=== PATIENT | female | born 1990 ===

== ENCOUNTER 2022-12-09 02:45 | Inpatient (IN) | payer OTHER ==
[~2022-12-09] VITALS: Ht 162.6 cm; Wt 87.3 kg
[2022-12-09] VITALS (7 sets, daily range): BP systolic 136–142; BP diastolic 61–83; O2SAT 99–100
[2022-12-09] MEDS ORDERED: RHOGAM 300MCG (1500IU) INJ IM SCH (03:00)
[2022-12-09] MEDS ORDERED: DOCUSATE SODIUM 100MG CAPSULE PO PRN (03:00)
[2022-12-09] MEDS ORDERED: LIDOCAINE 1% MDV 20ML VIAL INFIL PRN (03:00)
[2022-12-09] MEDS ORDERED: TRANEXAMIC ACID INJection 1,000 MG in NS 100 ML IV PRN (03:00)
[2022-12-09] MEDS ORDERED: METHYLERGONOVINE MALEATE 0.2MG/ML 1ML VIAL IM PRN (03:00)
[2022-12-09] MEDS ORDERED: OXYTOCIN DRIP 30 UNITS in IV 1 EA IV PRN (03:00)
[2022-12-09] MEDS ORDERED: IBUPROFEN 600MG TAB PO PRN (03:00)
[2022-12-09] MEDS ORDERED: DIBUCAINE 1% OINTMENT 30GM TOP PRN (03:00)
[2022-12-09] MEDS ORDERED: METHYLERGONOVINE MALEATE 0.2 MG TAB PO PRN (03:00)
[2022-12-09] MEDS ORDERED: ACETAMINOPHEN TAB 650MG DOSE (2X325MG) PO PRN (03:00)
[2022-12-09 03:58] LABS: HEMATOCRIT 29.5 % (36.0-47.0); HEMOGLOBIN 8.7 g/dl (12.0-15.5); MEAN CORPUSCULAR HEMOGLOBIN 20.4 pg (27.0-33.0); MEAN CORPUSCULAR HGB CONC 29.5 g/dl (32.0-36.5); MEAN CORPUSCULAR VOLUME 69.1 fl (80.0-96.0); PLATELET COUNT, AUTOMATED 301 10^3/uL (150-450); RED BLOOD COUNT 4.27 10^6/uL (4.00-5.40); WHITE BLOOD COUNT 8.9 10^3/uL (4.0-10.0)
[2022-12-09] MEDS ORDERED: OMEP10CASR PO (04:16)
[2022-12-09] MEDS ORDERED: HOME MED LIST COMPLETE! XX SCH (04:20)
[2022-12-09] MEDS: IBUPROFEN 800 MG TAB PO PRN ×2 (05:24→17:08)
[2022-12-09] MEDS: PRENATAL VITAMINS CHEWABLE TABLET PO SCH (07:44)
[2022-12-09] MEDS: ACETAMINOPHEN 500 MG TAB PO PRN (07:44)
[2022-12-10] MEDS: ACETAMINOPHEN 500 MG TAB PO PRN (03:18)
[2022-12-10] MEDS: IBUPROFEN 800 MG TAB PO PRN (05:20)
[2022-12-10 06:00] VITALS: BP 127/72; O2SAT 98
[2022-12-10] MEDS: PRENATAL VITAMINS CHEWABLE TABLET PO SCH (07:31)
[2022-12-11] MEDS ORDERED: MEASLES,MUMPS,RUBELLA VACCINE INJ (MMR-II) SC.IMMUN ONE (09:00)
== END 2022-12-10 13:00 | disposition home or self-care (01) | DRG 776 ==
LOC: M LDI 02:45 → EDBD 02:45 → M OBS 05:18
PROVIDERS: ADMIT Obstetrics & Gynecology; ATTEND Obstetrics & Gynecology
DX: Z39.0 Encounter for care and examination of mother immediately after delivery (principal)